=== PATIENT | female | born 1995 | race Two or more races ===

== ENCOUNTER → 2024-08-29 | Outpatient (CLI) | payer BC, SELFPAY ==
--- NOTE | 2024-08-29 10:30 | XR_ITS ---
Examination: Breast ultrasound, unilateral, right complete Date and time of exam: August 29, 2024 1058 hours INDICATIONS: Right breast swelling and pain beginning 2 months ago Technique: Real-time basurto scale ultrasonographic imaging performed right breast including all 4 quadrants as well as nipple retroareolar and axillary region. 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
== END | disposition home or self-care (01) ==
LOC: CDIM 10:45
PROVIDERS: PCP Nurse Practitioner Family; Referring Provider Nurse Practitioner Family; Visit Provider Nurse Practitioner Family
DX: N63.15 Unspecified lump in the right breast, overlapping quadrants (principal); N63.12 Unspecified lump in the right breast, upper inner quadrant; N63.11 Unspecified lump in the right breast, upper outer quadrant; N63.13 Unspecified lump in the right breast, lower outer quadrant
CPT/HCPCS: 76641

== ENCOUNTER → 2024-09-23 | Outpatient (CLI) | payer BC, SELFPAY ==
--- NOTE | 2024-09-23 13:00 | XR_ITS ---
Examination: CT right upper extremity with intravenous contrast 2-D sagittal and coronal reconstructions Exam date and time: September 23, 2024 1428 hrs. Indications: Right axillary swelling multiple lymph nodes over the last several years CTDI:vol (mGy) 13.3 DLP: (mGycm) 327 Technique: Multiple axial sections of the right upper extremity Intravenous contrast administered, 60 cc [id number]. 2-D sagittal, coronal images obtained. Low dose protocols were performed. One or more of the following dose reduction techniques were used; automated exposure control, adjustment of the mA and/or KV according to patient size, use of iterative reconstruction technique. Findings: Small right axillary lymph nodes No chest wall mass Ribs appear intact Negative for soft tissue abscess Minimal joint unremarkable Impression: No pathologic axillary lymphadenopathy is currently depicted
[2024-09-23 13:46] LABS: HCG Qualitative,Urine Negative
== END | disposition home or self-care (01) ==
LOC: CCTX 13:00
PROVIDERS: Referring Provider Nurse Practitioner Family; Visit Provider Nurse Practitioner Family
DX: D24.1 Benign neoplasm of right breast (principal); R59.0 Localized enlarged lymph nodes; Z32.00 Encounter for pregnancy test, result unknown
CPT/HCPCS: 73201; 81025; A4649; Q9967

== ENCOUNTER → 2025-03-30 | Outpatient (CLI) | payer BC, SELFPAY ==
--- NOTE | 2025-03-30 11:30 | XR_ITS ---
Examination: Breast ultrasound, unilateral, right complete Date and time of exam: March 30, 2025, 1211 hours INDICATIONS: Palpable lump in the right breast beginning 7 months ago, multiple left breast nodules on ultrasound 09/29/2024 Technique: Real-time basurto scale ultrasonographic imaging performed left breast including all 4 quadrants as well as nipple retroareolar and axillary region. Findings: 2:00 nodule lobular margins 9 x 6 mm 7:00 nodule lobular margins 16 x 16 mm 9:00 nodule lobular margins 14 x 11 mm 10:00 nodule lobular margins 10 x 7 mm 11:00 nodule lobular margin 15 x 17 mm IMPRESSION: BI-RADS Category 3: Probably benign findings 1 additional 6-month right breast sonogram is needed in 6 months
== END | disposition home or self-care (01) ==
LOC: CDIM 11:57
PROVIDERS: Referring Provider Nurse Practitioner Family; Visit Provider Nurse Practitioner Family
DX: R92.8 Other abnormal and inconclusive findings on diagnostic imaging of breast (principal)
CPT/HCPCS: 76641

== ENCOUNTER → 2025-05-29 | Outpatient (CLI) | payer BC, SELFPAY ==
--- NOTE | 2025-05-29 12:30 | XR_ITS ---
Examination: Breast ultrasound, unilateral, left complete Date and time of exam: May 29, 2025, 1317 hours INDICATION: Left breast pain beginning 4 months ago Technique: Real-time basurto scale ultrasonographic imaging performed left breast including all 4 quadrants as well as nipple retroareolar and axillary region. Findings: 3:00 nodule circumscribed 7 x 6 mm 4:00 nodule circumscribed lobular margins 7 x 5 mm 10 o'clock nodule lobular margins 4 x 4 mm IMPRESSION: BI-RADS Category 3: Probably benign findings Recommend 1 additional 6-month left breast sonogram follow-up to document stability of nodules described above
== END | disposition home or self-care (01) ==
LOC: CDIM 12:48
PROVIDERS: Referring Provider Nurse Practitioner Family; Visit Provider Nurse Practitioner Family
DX: N63.25 Unspecified lump in the left breast, overlapping quadrants (principal); N63.23 Unspecified lump in the left breast, lower outer quadrant
CPT/HCPCS: 76641